=== PATIENT | female | born 1945 | race Caucasian/White ===

== ENCOUNTER 2018-09-18 18:15 | Inpatient (IN) | payer OTHER, MEDICAID ==
[~2018-09-18] VITALS: Ht 170.2 cm; Wt 84.4 kg
--- NOTE | 2018-09-18 18:15 | NUR ---
Patient BIBA BLS, triaged by RN and transferred to chair E. RN evaluating patient at bedside.
[2018-09-18 18:20] VITALS: BP 134/77
--- NOTE | 2018-09-18 18:40 | NUR ---
PATIENT MOVED FROM CHAIR E TO ER BED 3.
--- NOTE | 2018-09-18 18:42 | NUR ---
Patient taken to CT scan via gurney by [facility].
--- NOTE | 2018-09-18 18:42 | NUR ---
PT IS A 73 Y/O FEMALE WHO PRESENTS TO THE ED C/O FALL. PER PT WAS ATTEMPTING TO GET OUT OF BED AND FELL AND HIT HER FOREHEAD. PT REPORTS 8/10 ACHING L FOREHEAD PAIN, NOTED BUMP AND REDNESS TO L FOREHEAD. PERRLA, DENIES NAUSEA/VOMITING. PT DENIES CP, SOB, RR EVEN/UNLABORED. PT AWAKE AND ALERT, PT REPOSITIONED FOR COMFORT, BED IN LOWEST POSITION. ER MD DR. THAKKAR NOTIFIED. WILL CONTINUE TO MONITOR. HX; DEMENTIA, BIPOLAR, SEIZURE, DEPRESSION -- RX; SEE MED REC FROM FACILITY
--- NOTE | 2018-09-18 18:43 | NUR ---
Note velasquez in EDM - 09/18/18 at 1845 by MED1 ELVIRA PALM FROM [facility] WITH C/O 5/10 LT FRONTAL PAIN/SWELLING S/P FALL AFTER GETTING OUT OF BED TODAY. DENIES LOC, NVD ANSWERS ALL QUESTIONS APPROPRIATELY HX; DEMENTIA, BIPOLAR, SEIZURE, DEPRESSION -- RX; SEE MED REC FROM FACILITY
--- NOTE | 2018-09-18 18:57 | NUR ---
Patient returned from CT scan. RN re-evaluating patient at bedside.
[2018-09-18 19:36] LABS: BASOPHILS % (AUTO) 0.6 % (0.0-2.0); EOSINOPHILS # (AUTO) 0.1 K/uL (0-0.4); EOSINOPHILS % (AUTO) 1.6 % (0.0-4.0); HEMATOCRIT 41.8 % (36-48); HEMOGLOBIN 13.5 g/dL (12.0-16.0); LYMPHOCYTES # (AUTO) 1.8 K/uL (2.5-16.5); LYMPHOCYTES % (AUTO) 32.1 % (20.5-51.1); MEAN CORPUSCULAR HEMOGLOBIN 29 pg (27-31); MEAN CORPUSCULAR HGB CONC 32 g/dL (33-37); MEAN CORPUSCULAR VOLUME 90.4 fL (80-94); MONOCYTES # (AUTO) 0.6 K/uL (0.8-1.0); MONOCYTES % (AUTO) 10.5 % (1.7-9.3); NEUTROPHILS % (AUTO) 55.2 % (42.2-75.2); PLATELET COUNT (AUTO) 206 K/uL (140-450); RED BLOOD CELL COUNT(AUTO) 4.62 MIL/uL (4.20-5.40); RED CELL DISTRIBUTION WIDTH 14.3 % (11.6-13.7); WHITE BLOOD COUNT (AUTO) 5.5 K/uL (4.8-10.8)
--- NOTE | 2018-09-18 19:45 | NUR ---
ASSUMED CARE OF PT.
--- NOTE | 2018-09-18 19:45 | NUR ---
PATIENT REPORT GIVEN TO [place] JOHANSEN. TRANSFER OF CARE AT THIS TIME.
[2018-09-18 19:48] LABS: ANION GAP 14.3 (8-16); CARBON DIOXIDE 28.9 mmol/L (21-32); CHLORIDE 109 mmol/L (98-107); CREATININE 0.9 mg/dL (0.6-1.3); GLUCOSE 116 mg/dL (74-106); POTASSIUM 4.2 mmol/L (3.5-5.1); SODIUM SERUM 148 mmol/L (136-145); UREA NITROGEN, BLOOD 21 mg/dL (7-18)
[2018-09-18 19:53] LABS: ALBUMIN 3.2 g/dL (3.4-5.0); ASPARTATE AMINOTRANSFERASE 16 U/L (15-37); TOTAL BILIRUBIN 0.3 mg/dL (0.0-1.0)
[2018-09-18] MEDS ORDERED: ACETAMINOPHEN EXTRA STRENGTH 500 MG TAB PO ONE (20:00)
--- NOTE | 2018-09-18 20:52 | NUR ---
PT PENDING D/C AT THIS TIME. FACILITY TO CALL BACK TO CONFIRM TRANSPORT BACK.
--- NOTE | 2018-09-18 21:31 | NUR ---
PT IN BED WITH NO DISTRESS, STILL PENDING [facility] TRANSPORT BACK TO FACILTY.
[2018-09-18] MEDS ORDERED: DOCUSATE SODIUM 100 MG GELCAP PO PRN (22:50)
[2018-09-18] MEDS ORDERED: ACETAMINOPHEN 325 MG TAB PO PRN (22:50)
[2018-09-18] MEDS ORDERED: HYDROcodone/APAP 7.5/325 MG 1 TAB PO PRN (22:50)
[2018-09-18] MEDS ORDERED: MORPHINE SULFATE 2 MG/ML SYR IVP PRN (22:50)
[2018-09-18] MEDS ORDERED: ONDANSETRON 4 MG/2 ML VIAL IM/IVP PRN (22:50)
--- NOTE | 2018-09-18 23:09 | NUR ---
Patient will be admitted to care of DR BOLAÑOS. Admited to TELE. Will go to room 123-A. Belongings list completed. Report to HAILY JARVIS.
[2018-09-18 23:14] LABS: PROTHROMBIN TIME 10.2 secs (10.8-13.4)
--- NOTE | 2018-09-18 23:15 | NUR ---
Admitted from ED , with chief complaint of HEAD PAIN, S/P FALL , 73 y/o ,Female, Cooperative, oriented to call light, bed, phone,television, bathroom, smoking policy, visiting hours, procedures, ID bracelet on. Belongings list checked. Addendum: 09/19/18 at 0137 by Patria Ovalle RN PT AWAKE,ALERT AND ORIENTED X3-4. PT CAN'T REMEMBER WHERE SHE'S AT BUT KNOWS THE YEAR, DATE AND WHY SHE'S HERE. INITIAL ASSESSMENT DONE. PT IS RESPONDS APPROPRIATELY. PT HAS BRUISE ON FOREHEAD ON LEFT SIDE. PT STATES HER PAIN LEVEL NOW IS 3/10 AND SAID SHE WAS GIVEN TYLENOL FOR PAIN EARLIER. VITAL SIGNS CHECKED. SAFETY REINFORCED. EXPLAINED TO PATIENT ABOUT HER PLAN OF CARE. PT VERBALIZED UNDERSTANDING. MRSA SWAB COLLECTED. PT HAD SMALL BM. PERICARE RENDERED W/ AREA CLEANER ASSISTANCE. CALL LIGHT W/IN REACH. Addendum: 09/19/18 at 0141 by Patria Ovalle RN NOTES FOR 2330.
[2018-09-18 23:20] VITALS: BP 132/72
[2018-09-18 23:27] LABS: CHOL/HDL RATIO 3.9 (1-4.5); FREE T4 (FREE THYROXINE) 0.86 ng/dL (0.76-1.46); THYROID STIMULATING HORMONE 4.01 uIU/mL (0.34-3.74)
[2018-09-18] MEDS ORDERED: PNEUMOCOCCAL VACCINE 23 MCG/0.5 ML VIAL IMVAC PRN (23:40)
[2018-09-18] MEDS ORDERED: MEDICATION REC. PHARMACY CONS. 1 EA MISC MC PRN (23:50)
[2018-09-19] MEDS: NACL 0.9% 1,000 ML IV SCH ×3 (00:09→22:22)
[2018-09-19] MEDS ORDERED: MEMA5TAB PO (00:32)
[2018-09-19] MEDS ORDERED: RISP0.5T3 PO (00:32)
[2018-09-19] MEDS ORDERED: PUL.5N NEB (00:32)
[2018-09-19] MEDS ORDERED: FLUO10CA21 PO (00:32)
[2018-09-19] MEDS ORDERED: CLON1TAB PO (00:32)
[2018-09-19] MEDS ORDERED: LEVE250T1 PO (00:32)
--- NOTE | 2018-09-19 01:00 | NUR ---
PT'S IV INFILTRATED. ATTEMPTED X1 ON RT AC BUT NO BLOOD RETURN. WOLFGANGRN INSERTED G24 ON RT FOREARM. IVF RESUMED ORDERED.
--- NOTE | 2018-09-19 02:00 | NUR ---
PT'S BED ALARMED, SEEN PT UP AND WANTS TO GO BATHROOM. ASSISTED PT TO THE BEDSIDE COMMODE. ASKED PT WHY SHE DIDN'T CALL. PT SAID "I FORGOT". PT HAD SMALL AMT OF DARK BROWN TO BLACK PASTY STOOL ON THE PAD. PT HAD URINE AND COLLECTED FOR TEST ORDERED. PERICARE RENDERED AND ASSISTED BACK TO BED. CALL LIGHT W/IN REACH. BED ALARM TURNED ON. WILL CONTINUE TO MONITOR.
--- NOTE | 2018-09-19 02:30 | NUR ---
PT'S HR BEEN ON MID 40'S. PT ASLEEP BUT AROUSABLE. WILL CONTINUE TO MONITOR.
[2018-09-19 02:41] LABS: APPEARANCE,URINE CLEAR (CLEAR); BILIRUBIN,URINE NEGATIVE (NEGATIVE); BLOOD, URINE TRACE-I (NEGATIVE); COLOR,URINE YELLOW (YELLOW); LEUKOCYTE ESTERASE ,URINE 2+ (NEGATIVE); NITRITE, URINE NEGATIVE (NEGATIVE); PH,URINE 6.5 (5.0-9.0); UGLUCOSE NEGATIVE (NEGATIVE)
[2018-09-19 02:51] LABS: BARBITURATE, URINE NEG. ng/ml (NEG <=200); BENZODIAZEPINE, URINE NEG. ng/mL (NEG <=200); CANNABINOID, URINE NEG. ng/mL (NEG <=50); COCAINE, URINE NEG. ng/mL (NEG <=300); OPIATE, URINE NEG. ng/mL (NEG <=2000); PHENCYCLIDINE SCREEN,URINE NEG. ng/mL (NEG <=25)
--- NOTE | 2018-09-19 03:45 | NUR ---
WOLFG[facility]GRN [facility] TO [facility] AND FLU VACCINE. THEY SAID , IT'S IN THE MEDICAL RECORD AND THEY'RE CLOSED RIGHT NOW. WILL ENDORSE TO MORNING SHIFT TO FOLLOW UP.
[2018-09-19 04:50] VITALS: BP 102/70
--- NOTE | 2018-09-19 04:50 | NUR ---
SEEN PT ASLEEP BUT EASILY AROUSABLE. VITAL SIGNS CHECKED. PT DENIES ANY PAIN OR DISCOMFORT. CALL LIGHT W/IN REACH. BED ALARM ON. WILL CONTINUE TO MONITOR.
--- NOTE | 2018-09-19 05:22 | NUR ---
PT'S HR DEEP DOWN TO 37. AWAKEN PT. PT DENIES ANY PAIN, OR SOB. PT IS ORIENTED TO DATE, DAY OF THE WEEK AND REASON SHE'S IN THE HOSPITAL. PT REMEMBERS FAMILY MEMBERS AND ANSWERS APPROPRIATELY TO SIMPLE QUESTIONS. WILL CONTINUE TO MONITOR.
--- NOTE | 2018-09-19 05:23 | NUR ---
SPOKE TO DR DAVIS REGARDING PT'S HR ON MID 40'S AND DEEP DOWN TO 37 BUT NON SUSTAINED. NO NEW ORDER RECEIVED. WILL CONTINUE TO MONITOR.
[2018-09-19 07:05] LABS: BASOPHILS % (AUTO) 0.8 % (0.0-2.0); EOSINOPHILS # (AUTO) 0.1 K/uL (0-0.4); EOSINOPHILS % (AUTO) 1.7 % (0.0-4.0); HEMATOCRIT 39.6 % (36-48); LYMPHOCYTES # (AUTO) 1.8 K/uL (2.5-16.5); MEAN CORPUSCULAR HEMOGLOBIN 30 pg (27-31); MEAN CORPUSCULAR HGB CONC 33 g/dL (33-37); MEAN CORPUSCULAR VOLUME 90.4 fL (80-94); MONOCYTES # (AUTO) 0.5 K/uL (0.8-1.0); MONOCYTES % (AUTO) 10.2 % (1.7-9.3); NEUTROPHILS # (AUTO) 2.3 K/uL (1.8-7.7); NEUTROPHILS % (AUTO) 49.3 % (42.2-75.2); PLATELET COUNT (AUTO) 191 K/uL (140-450); RED BLOOD CELL COUNT(AUTO) 4.38 MIL/uL (4.20-5.40); RED CELL DISTRIBUTION WIDTH 14.1 % (11.6-13.7); WHITE BLOOD COUNT (AUTO) 4.6 K/uL (4.8-10.8)
--- NOTE | 2018-09-19 07:30 | NUR ---
REPORT GIVEN TO DAYSHIFT NURSE.
--- NOTE | 2018-09-19 07:31 | NUR ---
RECEIVED BEDSIDE REPORT FROM QUANTITATIVE EQUITY HEAD NURSE. PATIENT AOX4 AND COOPERATIVE. RESPIRATION EVEN AND UNLABORED ON ROOM AIR. DENIES PAIN. NO SIGNS OF DISTRESS NOTED. BRUISE ON L FOREHEAD NOTED, SCAB ON L SHOULDER NOTED, OTHERWISE, SKIN IS INTACT, WARM AND DRY. IV ON R FA 24G, PATENT AND INTACT, INFUSING PER MD ORDER. AMBULATE WITH ASSIST. MILD TREMORS ON BOTH HANDS NOTED. COMMODE AT BEDSIDE. PLAN OF CARE WAS DISCUSSED WITH PATIENT, AND PATIENT VERBALIZED UNDERSTANDING. ALL SAFETY MEASURES ARE IN PLACE. SEIZURE PRECAUTION INITIALED AND SIGN POSTED. FALL PRECAUTION INITIALED AND PATIENT WEARING YELLOW GOWN, YELLOW SOCKS, WRIST BAND, AND SIGN POSTED. SEQUENTIAL COMPRESSION SOCKS IN PLACE. INSTRUCTED PATIENT TO USE THE CALL LIGHT FOR ANY ASSISTANCE. PATIENT VERBALIZED UNDERSTANDING. BED AT LOW POSITION. CALL LIGHT WITHIN REACH AND VERBALIZE ITS USE.
[2018-09-19 07:56] LABS: ANION GAP 14.1 (8-16); CARBON DIOXIDE 26.4 mmol/L (21-32); CHLORIDE 108 mmol/L (98-107); CREATININE 0.8 mg/dL (0.6-1.3); GLUCOSE 78 mg/dL (74-106); POTASSIUM 4.5 mmol/L (3.5-5.1); SODIUM SERUM 144 mmol/L (136-145); UREA NITROGEN, BLOOD 18 mg/dL (7-18)
[2018-09-19] MEDS: ASPIRIN 81 MG TAB.CHEW PO SCH (08:39)
--- NOTE | 2018-09-19 08:39 | NUR ---
PATIENT HAS BEEN SCREENED AND CATEGORIZED MODERATE NUTRITION RISK. PATIENT WILL BE SEEN WITHIN 3-5 DAYS OF ADMISSION. 09/20/18[address]EF[address]
[2018-09-19] MEDS: clonazePAM 0.5 MG TAB PO SCH ×2 (08:41→20:54)
[2018-09-19] MEDS: levETIRAcetam 500 MG TAB PO SCH ×2 (08:42→20:49)
[2018-09-19] MEDS: FLUoxetine 10 MG CAP PO SCH (08:42)
[2018-09-19] MEDS: MEMANTINE 10 MG TAB PO SCH (08:42)
--- NOTE | 2018-09-19 08:59 | NUR ---
ADMINISTERED MEDS PER MD ORDER, PATIENT TOLERATED WELL. DENIES PAIN. NO SIGNS OF DISTRESS NOTED. TELE MONITOR ATTACHED. SAFETY MEASURES ARE IN PLACE.
[2018-09-19] MEDS ORDERED: LEVETIRACETAM 750 MG PO SCH (09:00)
--- NOTE | 2018-09-19 09:05 | NUR ---
PHYSICAL THERAPIST IS WITH PATIENT AT THIS TIME.
--- NOTE | 2018-09-19 11:15 | NUR ---
ASSISTED PATIENT TO GET OUT FROM BED AND USE TO BEDSIDE COMMODE. PATIENT TOLERATED WELL. NO SIGNS OF DISTRESS NOTED.
[2018-09-19 12:00] VITALS: BP 134/65
--- NOTE | 2018-09-19 12:45 | NUR ---
DR ORDOÑEZ IS TALKING TO PATIENT AT BEDSIDE. NO SIGNS OF DISTRESS NOTED. SAFETY MEASURES IN PLACE. TELE MONITOR ATTACHED.
--- NOTE | 2018-09-19 13:25 | NUR ---
PATIENT IS RESTING ON BED AT THIS TIME. DENIES PAIN AND SOB. NO SIGNS OF DISTRESS NOTED. SAFETY MEASURES ARE IN PLACE. TELE MONITOR ATTACHED.
[2018-09-19] MEDS ORDERED: LACTOBACILLUS RHAMNOSUS GG 1 EACH CAP PO SCH (14:00)
[2018-09-19] MEDS ORDERED: NACL 0.9% 250 ML IV SCH (14:25)
--- NOTE | 2018-09-19 14:26 | NUR ---
RECEIVED CRITICAL LACTIC ACID LAB RESULT 2.4. NOTIFIED DR ORDOÑEZ AND RECEIVED ORDER THAT ADMINISTER 250ML BOLUS NS STAT.
--- NOTE | 2018-09-19 15:58 | NUR ---
PATIENT IS SLEEPING ON BED. DENIES PAIN AND SOB. NO SIGNS OF DISTRESS NOTED. SAFETY MEASURES IN PLACE. CALL LIGHT WITHIN REACH. TELE MONITOR ATTACHED.
[2018-09-19 16:00] VITALS: BP 154/73
--- NOTE | 2018-09-19 16:20 | NUR ---
PATIENT WAS ATTEMPT TO GET OUT OF BED AND BED ALARM SOUNDED. ORIENTED PATIENT TO STAY ON BED AND USE THE CALL LIGHT FOR ANY ASSISTANCE. PATIENT VERBALIZED OK. SAFETY MEASURES IN PLACE. BED IN LOW POSITION AND CALL LIGHT WITHIN REACH.
--- NOTE | 2018-09-19 18:37 | NUR ---
PATIENT TRIED TO GET OUT FROM BED AND SAID THAT SHE WANTS TO TAKE A WALK OUTSIDE THE PARK. ORIENTED PATIENT THAT THIS IS [facility] AND EDUCATED PATIENT ON FALL PRECAUTION. INSTRUCTED PATIENT TO STAY ON BED AND USE THE CALL LIGHT FOR ANY ASSISTANCE. SAFETY MEASURE IN PLACE. BED IN LOW POSITION, AND CALL LIGHT WITHIN REACH.
--- NOTE | 2018-09-19 19:30 | NUR ---
ASSUMED CARE OF PATIENT, AWAKE, CONFUSED. ATTEMPTING TO GET OUT OF BED. SITTER AT BEDSIDE. NO COMPLAINS NO DISTRESS. CALL LIGHT WITHIN REACH. CARE BOARD UPDATED.
--- NOTE | 2018-09-19 19:30 | NUR ---
ENDORSED PATIENT TO CONTINUITY READER NURSE AT BEDSIDE. PATIENT IS IN A STABLE CONDITION.
--- NOTE | 2018-09-19 20:00 | NUR ---
REPOSITIONED BY SECURITY SHIFT MANAGER. PERICARE NOTED. VITAL SIGNS STABLE. NO COMPLAINS. PLAN OF CARE DISCUSSED WITH PATIENT, NEEDS REINFORCEMENT. CALL LIGHT WITHIN REACH.
[2018-09-19] MEDS: risperiDONE 1 MG TAB PO SCH (20:49)
[2018-09-19] MEDS ORDERED: risperiDONE 1 MG TAB PO SCH ×2 (21:00)
[2018-09-19 21:36] VITALS: BP 145/60
[2018-09-20 00:07] VITALS: BP 117/59
--- NOTE | 2018-09-20 00:19 | NUR ---
ASLEEP. VITAL SIGNS STABLE. NO COMPLAINS. CALL LIGHT WITHIN REACH. SITTER AT BEDSIDE.
[2018-09-20 03:46] VITALS: BP 113/64
--- NOTE | 2018-09-20 03:47 | NUR ---
ASLEEP EASILY AROUSABLE. BRP TO BSC ACCOMPANIED BY TUBE CUTTER OPERATOR, VOIDING WELL. VITAL SIGNS STABLE. NO COMPLAINS. CALL LIGHT WITHIN REACH.
[2018-09-20] MEDS: NACL 0.9% 1,000 ML IV SCH ×3 (05:51→19:18)
[2018-09-20 06:20] LABS: BASOPHILS # (AUTO) 0.1 K/uL (0.00-0.22); BASOPHILS % (AUTO) 1.3 % (0.0-2.0); EOSINOPHILS # (AUTO) 0.1 K/uL (0-0.4); EOSINOPHILS % (AUTO) 1.9 % (0.0-4.0); HEMATOCRIT 40.4 % (36-48); HEMOGLOBIN 13.2 g/dL (12.0-16.0); LYMPHOCYTES # (AUTO) 1.6 K/uL (2.5-16.5); LYMPHOCYTES % (AUTO) 27.3 % (20.5-51.1); MEAN CORPUSCULAR HEMOGLOBIN 30 pg (27-31); MEAN CORPUSCULAR HGB CONC 33 g/dL (33-37); MEAN CORPUSCULAR VOLUME 91.6 fL (80-94); MONOCYTES # (AUTO) 0.5 K/uL (0.8-1.0); MONOCYTES % (AUTO) 8.3 % (1.7-9.3); NEUTROPHILS # (AUTO) 3.7 K/uL (1.8-7.7); NEUTROPHILS % (AUTO) 61.2 % (42.2-75.2); PLATELET COUNT (AUTO) 124 K/uL (140-450); RED BLOOD CELL COUNT(AUTO) 4.41 MIL/uL (4.20-5.40); RED CELL DISTRIBUTION WIDTH 14.7 % (11.6-13.7)
[2018-09-20 06:27] LABS: ANION GAP 14.8 (8-16); CARBON DIOXIDE 25.2 mmol/L (21-32); CHLORIDE 109 mmol/L (98-107); CREATININE 0.9 mg/dL (0.6-1.3); GLUCOSE 80 mg/dL (74-106); SODIUM SERUM 145 mmol/L (136-145); UREA NITROGEN, BLOOD 13 mg/dL (7-18)
[2018-09-20 06:36] LABS: PHOSPHORUS 3.9 mg/dL (2.5-4.9)
--- NOTE | 2018-09-20 06:49 | NUR ---
SITTER AT BEDSIDE. RESIDENT MD AT BEDSIDE. NO COMPLAINS. CALL LIGHT WITHIN REACH.
--- NOTE | 2018-09-20 07:34 | NUR ---
ENDORSED CARE AT BEDSIDE WITH YOANA JOHANSEN, PATIENT IN STABLE CONDITION.
--- NOTE | 2018-09-20 07:34 | NUR ---
RECEIVED BEDSIDE REPORT FROM BRIDGE PAINTER NURSE. PATIENT AOX2. RESPIRATION EVEN AND UNLABORED ON ROOM AIR. NO SIGNS OF PAIN OR DISTRESS NOTED. SKIN IS INTACT, WARM AND DRY. IV ON LEFT WRIST 24G, PATENT AND INTACT, INFUSING PER MD ORDER. AMBULATE WITH ASSIST. MILD TREMORS ON BOTH HANDS NOTED. COMMODE AT BEDSIDE. PLAN OF CARE WAS DISCUSSED WITH PATIENT, AND PATIENT VERBALIZED UNDERSTANDING. ALL SAFETY MEASURES ARE IN PLACE. SEIZURE PRECAUTION INITIALED AND SIGN POSTED. FALL PRECAUTION INITIALED AND PATIENT WEARING YELLOW GOWN, YELLOW SOCKS, WRIST BAND, AND SIGN POSTED. SEQUENTIAL COMPRESSION SOCKS IN PLACE. INSTRUCTED PATIENT TO USE THE CALL LIGHT FOR ANY ASSISTANCE. PATIENT VERBALIZED UNDERSTANDING. BED AT LOW POSITION. CALL LIGHT WITHIN REACH.
[2018-09-20 08:00] VITALS: BP 139/71
[2018-09-20] MEDS: MEMANTINE 10 MG TAB PO SCH (09:32)
[2018-09-20] MEDS: levETIRAcetam 500 MG TAB PO SCH ×2 (09:32→21:16)
[2018-09-20] MEDS: ASPIRIN 81 MG TAB.CHEW PO SCH (09:32)
[2018-09-20] MEDS: FLUoxetine 10 MG CAP PO SCH (09:33)
[2018-09-20] MEDS: LACTOBACILLUS RHAMNOSUS GG 1 EACH CAP PO SCH (09:33)
--- NOTE | 2018-09-20 09:38 | NUR ---
ADMINISTERED MORNING MEDS TO PT. PT TOLERATED THEM WELL. NO SIGNS OF PAIN OR DISTRESS AT THIS TIME. CURRENTLY AT BEDSIDE SITTER FOR PT. BED IN LOW POSITION, CALL LIGHT WITHIN REACH.
[2018-09-20] MEDS: clonazePAM 0.5 MG TAB PO SCH ×2 (09:40→21:13)
--- NOTE | 2018-09-20 11:57 | NUR ---
PT IN BED SLEEPING. NO SIGNS OF PAIN OR DISTRESS NOTED. ALL NEEDS MET A THIS TIME. SITTING AT PT BEDSIDE. WILL CONTINUE OT MONITOR PT CLOSELY.
[2018-09-20 12:00] VITALS: BP 102/53
--- NOTE | 2018-09-20 13:05 | NUR ---
PT EATING LUNCH. PT ABLE TO EAT INDEPENDENTLY WITH ASSISTANCE IN OPENING LIDS. PT TOLERATING MEAL WELL. NO SIGNS OF PAIN OR DISTRESS AT THIS TIME. WILL CONTINUE TO MONITOR PT CLOSELY.
[2018-09-20] MEDS: metroNIDAZOLE 500 MG/NS PREMIX 100 ML IV SCH ×2 (13:24→21:08)
--- NOTE | 2018-09-20 15:21 | NUR ---
PT RESTING IN BED. LINENS WERE CHANGED. PT VOIDING HEAVILY SO LINENS MUST BE CHANGED FREQUENTLY. ALL NEEDS MET AT THIS TIME. BED IN LOW POSITION, CALL LIGHT WITHIN REACH. WILL CONTINUE TO MONITOR PT CLOSELY.
[2018-09-20 16:00] VITALS: BP 146/66
--- NOTE | 2018-09-20 17:20 | NUR ---
PT IN BED WATCHING TV. NO COMPLAINTS OF PAIN OR DISTRESS. PT IS CALM AT THIS TIME. WILL CONTINUE TO MONITOR PT CLOSELY. BED IN LOW POSITION, CALL LIGHT WITHIN REACH.
--- NOTE | 2018-09-20 19:17 | NUR ---
RECEIVED BEDSIDE REPORT FROM AM SHIFT NURSE. PATIENT AOX2. SITTER IN PLACE; NONVERBAL CONFUSED DOES NOT FOLLOW SIMPLE COMMANDS. RESPIRATION EVEN AND UNLABORED ON ROOM AIR. NO SIGNS OF PAIN OR DISTRESS NOTED. NS IV ON LEFT WRIST 24G, INFUSING WELL,FALL PRECAUTION. SCD IN PLACE.P. BED AT LOW POSITION. CALL LIGHT WITHIN REACH. Addendum: 09/21/18 at 0137 by Riya Cain RN AMEND TO PT. VERBAL BUT CONFUSED
--- NOTE | 2018-09-20 19:20 | NUR ---
ENDORSED PT TO SUGAR DRIER FOR CONTINUITY OF CARE. PT IN STABLE CONDITION AT THIS TIME.
--- NOTE | 2018-09-20 19:40 | NUR ---
PT TRYING TO GET UP ON BED,PT SUNDOWNING SX'S NOTED. PT TRYING TO PULL OUT IVF
[2018-09-20 20:00] VITALS: BP 161/74
--- NOTE | 2018-09-20 21:00 | NUR ---
PT BP 161/70, HR 88 DR. DAVIS AWARE. NO NEW ORDERS
[2018-09-20] MEDS ORDERED: LORazepam 2 MG/ML VIAL ONE (21:16)
[2018-09-20] MEDS: risperiDONE 1 MG TAB PO SCH (21:16)
[2018-09-20] MEDS ORDERED: LORazepam 2 MG/ML VIAL IVP SCH (21:30)
[2018-09-20] MEDS: MELATONIN 3 MG TAB PO PRN (21:50)
--- NOTE | 2018-09-20 23:25 | NUR ---
PT IVF PULLED OUT BY PT REPLACED BY NEW IV SITE ON G 22 ON LEFT FOREARM. Addendum: 09/21/18 at 1909 by Riya Cain RN AMEND TO RIGHT FOREARM
--- NOTE | 2018-09-20 23:46 | NUR ---
MELATONIN NOT TAKEN BY PATIENT. PT ALREADY SLEEPING. WASTED MELATONIN
[2018-09-21] VITALS: BP 132/72
--- NOTE | 2018-09-21 01:37 | NUR ---
CLEANED PT,SMEAR OF BM, AND VOIDED 1X CHECKED PT FREQUENTLY
--- NOTE | 2018-09-21 01:38 | NUR ---
PT ABLE TO HELP TURN SELF. TURNED PT Q2
[2018-09-21] MEDS: NACL 0.9% 1,000 ML IV SCH ×3 (03:19→19:09)
[2018-09-21 04:00] VITALS: BP 128/65
[2018-09-21] MEDS: metroNIDAZOLE 500 MG/NS PREMIX 100 ML IV SCH (05:05)
--- NOTE | 2018-09-21 05:35 | NUR ---
CLEANED W/ ANOTHER VOID, AND ANOTHER BM, SMEAR/MINIMAL AMOUNT.
--- NOTE | 2018-09-21 05:56 | NUR ---
COMMERCIAL REAL ESTATE APPRAISER HERE TO DO BLOOD WORKS.
[2018-09-21 06:40] LABS: BASOPHILS # (AUTO) 0.1 K/uL (0.00-0.22); EOSINOPHILS # (AUTO) 0.2 K/uL (0-0.4); EOSINOPHILS % (AUTO) 3.1 % (0.0-4.0); HEMATOCRIT 38.1 % (36-48); HEMOGLOBIN 12.4 g/dL (12.0-16.0); LYMPHOCYTES # (AUTO) 1.5 K/uL (2.5-16.5); LYMPHOCYTES % (AUTO) 29.4 % (20.5-51.1); MEAN CORPUSCULAR HEMOGLOBIN 30 pg (27-31); MEAN CORPUSCULAR HGB CONC 33 g/dL (33-37); MEAN CORPUSCULAR VOLUME 91.1 fL (80-94); MONOCYTES # (AUTO) 0.5 K/uL (0.8-1.0); MONOCYTES % (AUTO) 10.3 % (1.7-9.3); NEUTROPHILS # (AUTO) 2.9 K/uL (1.8-7.7); NEUTROPHILS % (AUTO) 56.2 % (42.2-75.2); PLATELET COUNT (AUTO) 185 K/uL (140-450); RED BLOOD CELL COUNT(AUTO) 4.18 MIL/uL (4.20-5.40); WHITE BLOOD COUNT (AUTO) 5.2 K/uL (4.8-10.8)
--- NOTE | 2018-09-21 06:40 | NUR ---
PT ASLEEP IN BED COMFORTABLE, PT IN STABLE CONDITION. WILL ENDORSE TO NEXT SHIFT FOR CONTINUITY OF CARE.
[2018-09-21 07:01] LABS: ANION GAP 13.8 (8-16); CARBON DIOXIDE 23.8 mmol/L (21-32); CHLORIDE 108 mmol/L (98-107); CREATININE 0.8 mg/dL (0.6-1.3); GLUCOSE 97 mg/dL (74-106); POTASSIUM 3.6 mmol/L (3.5-5.1); SODIUM SERUM 142 mmol/L (136-145); UREA NITROGEN, BLOOD 14 mg/dL (7-18)
[2018-09-21 07:08] LABS: MAGNESIUM 1.9 mg/dL (1.8-2.4)
--- NOTE | 2018-09-21 07:10 | NUR ---
RECEIVED PT FROM YARD DEMURRAGE CLERK NURSECHAVEZ, PT IS AWAKE WITH KURT CRANDALL ON THE BEDSIDE, SIDE RAILS ARE UP AND CALL LIGHT WITHIN REACH, SAFETY AND FALL PRECAUTION ENFORCED, PT HAS AN IV LINE ON THE LEFT HAND G. 24 WITH NS AT 126ML/HR INFUSING AND INTACT. NO SIGN OF DISTRESS NOTED AND PT IS CALM AND COMPLIANT. WILL MONITOR PT.
[2018-09-21 08:00] VITALS: BP 144/97
--- NOTE | 2018-09-21 08:10 | NUR ---
PT IS AWAKE AND VITAL SIGNS TAKEN AND IS WITHIN NORMAL LIMIT, SITTER ON THE BEDSIDE, NO SIGN OF DISTRESS AND WILL MONITOR PT.
[2018-09-21] MEDS: clonazePAM 0.5 MG TAB PO SCH ×2 (10:09→20:24)
[2018-09-21] MEDS: levETIRAcetam 500 MG TAB PO SCH ×2 (10:10→20:22)
--- NOTE | 2018-09-21 10:10 | NUR ---
PT IS AWAKE AND ORAL MEDICATIONS WERE GIVEN AND PT TOLERATED THE MEDICATIONS. NO SIGN OF DISTRESS NOTED AND WILL MONITOR PT.
[2018-09-21] MEDS: LACTOBACILLUS RHAMNOSUS GG 1 EACH CAP PO SCH (10:11)
[2018-09-21] MEDS: FLUoxetine 10 MG CAP PO SCH (10:11)
[2018-09-21] MEDS: ASPIRIN 81 MG TAB.CHEW PO SCH (10:11)
[2018-09-21] MEDS: MEMANTINE 10 MG TAB PO SCH (10:12)
[2018-09-21 12:00] VITALS: BP 127/60
[2018-09-21] MEDS ORDERED: diphenhydrAMINE 50 MG/ML VIAL IVP PRN (12:30)
--- NOTE | 2018-09-21 12:35 | NUR ---
PT IS AWAKE AND VITAL SIGNS CHECKED AND RESULT IS WITHIN NORMAL LIMIT, NO SIGN OF DISTRESS NOTED, PT IS CALM AND SITTER ON THE BEDSIDE. WILL MONITOR PT.
[2018-09-21] MEDS ORDERED: AMPICILLIN/SULBACTAM 1.5 GM in NACL 0.9% 50 ML IV SCH ×2 (14:08→18:00)
--- NOTE | 2018-09-21 14:18 | NUR ---
FIRST DOSE OF UNASYN STARTED, WILL CLOSELY MONITOR FOR ANY S/S OF ADVERSE REACTIONS.
--- NOTE | 2018-09-21 14:52 | NUR ---
PT'S UNASYN WAS NLOTED TO BE FINISHED NOW AND NO REACTION WAS NOTED FROM THE PT, DR. ORDOÑEZ WAS INFORMED.
[2018-09-21 16:00] VITALS: BP 150/74
[2018-09-21] MEDS: AMPICILLIN/SULBACTAM 1.5 GM in NACL 0.9% 50 ML IV SCH ×2 (17:41→23:31)
--- NOTE | 2018-09-21 17:44 | NUR ---
PT IS AWAKE AND ABOUT TO EAT HER DINNER, VITAL SIGNS TAKEN AND IS WITHIN NORMAL LIMIT, IV MEDICATION NWAS GIVEN VIA PIGGYBACK AND PT TOLERATED IT. NO SIGN OF DISTRESS NOTED AN WILL MONITOR PT.
--- NOTE | 2018-09-21 19:00 | NUR ---
ENDORSED PT TO LEGAL NURSE CONSULTANT NURSECHAVEZ FOR CONTINUITY OF CARE, PT IS STABLE AT THIS TIME, LYING ON THE BED AND AWAKE.
--- NOTE | 2018-09-21 19:04 | NUR ---
RECEIVED PT FROM AM SHIFT PT IS AWAKE, AT THIS TIME, PT CALM. WITH 1 : 1 SITTER ON THE BEDSIDE, PT HAS AN IV LINE ON THE RIGHT HAND G. 24 WITH NS AT 126ML/HR INFUSING AND INTACT. SIDE RAILS ARE UP AND CALL LIGHT WITHIN REACH, SAFETY AND FALL PRECAUTION ENFORCED. WILL MONITOR PT Addendum: 09/21/18 at 1910 by Riya Cain RN AMEND TO RIGHT FOREARM
--- NOTE | 2018-09-21 19:50 | NUR ---
CHANGED PT, CLEANED W/ 1 BM, VOIDED 1X, TURNED PT TO SIDE W/ ASSIST
[2018-09-21 20:00] VITALS: BP 132/70
[2018-09-21] MEDS: risperiDONE 1 MG TAB PO SCH (20:26)
[2018-09-21] MEDS: MELATONIN 3 MG TAB PO PRN (20:26)
--- NOTE | 2018-09-21 21:00 | NUR ---
PT TOOK OFF IV WILLL REINSERT FOR IV ANTIBUOTICS CLINDAMYCIN AND ROCEPHIN ON 2 DIFFERENT SITES. LATE ADMINISTRATION OF ROCEPHIN DUE TO PULLING OUT OF IV BY PT Addendum: 09/21/18 at 2146 by Riya Cain RN PLS DELETE NOTE.
--- NOTE | 2018-09-21 21:00 | NUR ---
PT TOOK OFF IV WILLL REINSERT FOR IV ANTIBIOTICS
--- NOTE | 2018-09-21 21:15 | NUR ---
INSERTED NEW IV SITE ON RIGHT FOREARM G 24
--- NOTE | 2018-09-21 23:48 | NUR ---
ADMINISTERED PT'S IV UNASYN ON R FA, G 24, INFORMED RYAN INFORMED PT SAID THAT PT HAS ALLERGY REACTION TO PENICILLIN. INFORMED DR. DAVIS SAID TO CONTINUE ADMINISTRATION OF ANTIBIOTICS THIS IS THE 2ND DOSE
[2018-09-22] VITALS: BP 135/75
[2018-09-22] MEDS: NACL 0.9% 1,000 ML IV SCH ×2 (03:06→11:23)
[2018-09-22 04:00] VITALS: BP 137/51
--- NOTE | 2018-09-22 05:00 | NUR ---
CLEANED PT, W/ 1 BM, VOIDED 1X. PT TURNED TO HER SIDE W/ ASSIST
[2018-09-22] MEDS: AMPICILLIN/SULBACTAM 1.5 GM in NACL 0.9% 50 ML IV SCH ×2 (05:27→11:44)
[2018-09-22 06:42] LABS: CARBON DIOXIDE 23.8 mmol/L (21-32); CHLORIDE 109 mmol/L (98-107); CREATININE 0.9 mg/dL (0.6-1.3); GLUCOSE 91 mg/dL (74-106); POTASSIUM 3.8 mmol/L (3.5-5.1); SODIUM SERUM 144 mmol/L (136-145); UREA NITROGEN, BLOOD 13 mg/dL (7-18)
[2018-09-22 06:45] LABS: MAGNESIUM 1.9 mg/dL (1.8-2.4); PHOSPHORUS 3.6 mg/dL (2.5-4.9)
--- NOTE | 2018-09-22 06:45 | NUR ---
PT ASLEEP, BUT AROUSABLE BY NAME. PT NOT IN RESPIRATORY DISTRESS, PT HAS NO COMPLAINTS OF PAIN. WILL ENDORSE TO NEXT SHIFT FOR CONTINUITY OF CARE.
[2018-09-22 07:05] LABS: BASOPHILS % (AUTO) 0.5 % (0.0-2.0); EOSINOPHILS # (AUTO) 0.2 K/uL (0-0.4); EOSINOPHILS % (AUTO) 3.5 % (0.0-4.0); HEMATOCRIT 39.4 % (36-48); LYMPHOCYTES # (AUTO) 1.6 K/uL (2.5-16.5); MEAN CORPUSCULAR HEMOGLOBIN 30 pg (27-31); MEAN CORPUSCULAR HGB CONC 33 g/dL (33-37); MONOCYTES # (AUTO) 0.5 K/uL (0.8-1.0); MONOCYTES % (AUTO) 9.7 % (1.7-9.3); NEUTROPHILS # (AUTO) 3.2 K/uL (1.8-7.7); NEUTROPHILS % (AUTO) 57.3 % (42.2-75.2); PLATELET COUNT (AUTO) 198 K/uL (140-450); RED BLOOD CELL COUNT(AUTO) 4.33 MIL/uL (4.20-5.40); RED CELL DISTRIBUTION WIDTH 14.3 % (11.6-13.7); WHITE BLOOD COUNT (AUTO) 5.6 K/uL (4.8-10.8)
--- NOTE | 2018-09-22 07:20 | NUR ---
RECEIVED PT FROM DISTRICT COMMERCIAL SUPERINTENDENT NURSECHAVEZ, PT IS AWAKE AND IS LYING ON THE BED WITH SIDE RAILS UP, FALL AND SAFETY PRECAUTION INITIATED, PT HAS AN IV LINE ON THE RT FA G.24, WITH NS AT 126 ML/HR INFUSING, NO SIGN OFDISTRESS NOTED AND WILL MONITOR PT.
[2018-09-22 08:00] VITALS: BP 148/68
--- NOTE | 2018-09-22 08:00 | NUR ---
PT IS AWAKE AND LYING ON THE BED, SITTER ON THE BEDSIDE, VITAL SIGNS CHECKED AND IS WITHIN NORMAL LIMIT. NO SIGN OF DISTRESS NOTED AND WILL MONITOR PT.
[2018-09-22] MEDS ORDERED: LACT1.4C PO (09:53)
[2018-09-22] MEDS ORDERED: AMPI1PDS18 IJ (09:53)
[2018-09-22] MEDS: FLUoxetine 10 MG CAP PO SCH (10:06)
[2018-09-22] MEDS: MEMANTINE 10 MG TAB PO SCH (10:07)
[2018-09-22] MEDS: ASPIRIN 81 MG TAB.CHEW PO SCH (10:07)
[2018-09-22] MEDS: LACTOBACILLUS RHAMNOSUS GG 1 EACH CAP PO SCH (10:07)
[2018-09-22] MEDS: clonazePAM 0.5 MG TAB PO SCH (10:08)
--- NOTE | 2018-09-22 10:10 | NUR ---
PT IS AWAKE AND VITAL SIGNS CHECKED AND IS WITHIN NORMAL LIMIT, MEDICATIONS WERE GIVEN AND PT TOLEARTED ALL THE MEDICATIONS, NO SIGN OF DISTRESS NOTED AND WILL MONITOR PT.
--- NOTE | 2018-09-22 10:11 | NUR ---
National Facilities Manager Note: Jan Givens from [facility] / , patient is on a 7 day bed hold and is one of their salvage determiner patients. She stated she will ask their Security Tech if patient has an existing Advance Directives for health care and call me back.
[2018-09-22] MEDS: levETIRAcetam 500 MG TAB PO SCH (10:17)
--- NOTE | 2018-09-22 11:03 | NUR ---
CM NOTE RECEIVED ORDER TO TRANSFER TO [facility] ON IV ANTIBIOTIC. FAXED ORDER AND CLINICAL PACKET INCLUDING MICROS TO [facility], ATTN: BRETT.
--- NOTE | 2018-09-22 11:44 | NUR ---
PT IS AWAKE AND IS AGITATED, ALWAYS ATTEMPTING TO GO OUT OF THE BED, UNASYN WAS GIVEN VIA IVPB AND PT TOLERATED IT. WILL MONITOR PT.
[2018-09-22 12:00] VITALS: BP 135/70
--- NOTE | 2018-09-22 13:27 | NUR ---
DR. CASTRO WAS INFORMED THAT PT WAS SO AGITATED, PT WAS GIVEN LORAZEPAM AND WAS CLEANED UP AND MADE COMFORTABLE ON THE BED. VITAL SIGNS CHECKED AND IS WITHIN NORMAL LIMIT. WILL MONITOR PT.
[2018-09-22] MEDS ORDERED: LORazepam 2 MG/ML VIAL IVP SCH (13:30)
--- NOTE | 2018-09-22 14:55 | NUR ---
CM NOTE PER BRETT OF [facility], THE PATIENT CAN GO TO [address] TODAY, NUMBER TO CALL FOR REPORT # [phone]. THE PATIENT HAS [facility]. CALLED [facility] PH# [phone] TO SET UP PATIENT'S TRANSPORT AND WAS CONNECTED TO "CALL THE CAR". PER MERRILL OF "CALL THE CAR", IT IS NO LONGER LOGISTIC TRANSPORT BUT "CALL THE CAR" # [phone] THAT MAKES TRANSPORTATION ARRANGEMENTS FOR [facility] PATIENTS. RECEIVED CALL FROM EMRRILL OF "CALL THE CAR" WHO STATED THAT THE PATIENT WILL BE PICKED UP AT 1530 TIME TODAY GOING TO [facility] BY [facility]AMES THROUGH [facility] (PH# [phone]), RESERVATION# [id number]. YOANA JOHANSEN AWARE.
--- NOTE | 2018-09-22 15:16 | NUR ---
CALLED [facility] AT [phone] AND GAVE REPORT TO HAILY MENDOZA. INFORMED RN THAT PT WILL BE PLACE IN [id number] AND WILL BE TRANSPORTED VIA [facility] AND THAT PT WILL BE CONTINUED WITH UNASYN IV FOR 6 MORE DAYS AND RN ACKNOWLEDGED.
--- NOTE | 2018-09-22 15:45 | NUR ---
DISCHARGED PT VIA GURNEY WITH [facility] PERSONNEL, PT IS AWAKE AND STABLE AT THIS TIME WITH A PERIPHERAL LINE INTACT ON THE RT FA G. 24 ON SALINE LOCK, VITAL SIGNS STABLE AND WUITHIN NORMAL LIMIT.
== END 2018-09-22 15:45 | DRG 871 ==
LOC: MED 18:15 → MTU 22:17
PROVIDERS: ADMIT General Practice; ATTEND General Practice
DX: A41.9 Sepsis, unspecified organism (principal); G93.41 Metabolic encephalopathy; E87.0 Hyperosmolality and hypernatremia; N39.0 Urinary tract infection, site not specified; R65.20 Severe sepsis without septic shock; G90.8 Other disorders of autonomic nervous system; F31.9 Bipolar disorder, unspecified; E87.8 Other disorders of electrolyte and fluid balance, not elsewhere classified; W18.30XA Fall on same level, unspecified, initial encounter; F03.90 Unspecified dementia, unspecified severity, without behavioral disturbance, psychotic disturbance, mood disturbance, and anxiety; E11.9 Type 2 diabetes mellitus without complications; S00.83XA Contusion of other part of head, initial encounter; K21.9 Gastro-esophageal reflux disease without esophagitis; Z96.651 Presence of right artificial knee joint; R26.81 Unsteadiness on feet; E78.5 Hyperlipidemia, unspecified; I11.9 Hypertensive heart disease without heart failure; G40.409 Other generalized epilepsy and epileptic syndromes, not intractable, without status epilepticus; M47.812 Spondylosis without myelopathy or radiculopathy, cervical region; Z88.2 Allergy status to sulfonamides; Z88.8 Allergy status to other drugs, medicaments and biological substances; Y93.89 Activity, other specified; Y92.009 Unspecified place in unspecified non-institutional (private) residence as the place of occurrence of the external cause; Y99.8 Other external cause status; Z79.899 Other long term (current) drug therapy
CPT/HCPCS: 36415; 70450; 71045; 72125; 80048; 80053; 80305; 81001; 82140; 83036; 83605; 83735; 83880; 84100; 84439; 84443; 85025; 85610; 85730; 87040; 87081; 87086; 93005; 93880; 97110; 97116; 97530; 99285; J0295; J0696; J2060; J3490; J7030; J7060; Q0092